=== PATIENT | female | born 1985 | race African-American/Black ===

== ENCOUNTER 2017-10-02 21:58 | Emergency (ER) | payer OTHER ==
[~2017-10-02] VITALS: Ht 175.3 cm; Wt 66.0 kg
[2017-10-02 22:54] VITALS: BP 120/79
== END 2017-10-02 22:54 | disposition home or self-care (01) ==
LOC: ER 21:58
DX: S41.111D Laceration without foreign body of right upper arm, subsequent encounter (principal); F17.200 Nicotine dependence, unspecified, uncomplicated; F12.10 Cannabis abuse, uncomplicated; X58.XXXD Exposure to other specified factors, subsequent encounter; Y93.89 Activity, other specified; Y99.8 Other external cause status; Y92.89 Other specified places as the place of occurrence of the external cause; Z88.0 Allergy status to penicillin
CPT/HCPCS: 99281; Z7610

== ENCOUNTER 2024-03-03 21:06 | Emergency (ER) | payer SELFPAY ==
[~2024-03-03] VITALS: Ht 175.3 cm; Wt 81.6 kg
[2024-03-03 21:16] VITALS: BP 110/77; RESP 16; TEMP 98.5; O2SAT 100
[2024-03-03 21:17] VITALS: PULSE 77
[2024-03-03] MEDS ORDERED: IBUPROFEN 600MG TABLET PO ONE (21:45)
[2024-03-03] MEDS ORDERED: IBUPROFEN 600MG TABLET PO NR (21:45)
[2024-03-03 21:51] LABS: BASOPHILS % 0.9 % (0.0-2.0); EOSINOPHILS % 2.1 % (0.0-5.0); HEMATOCRIT. 33.3 % (36.0-48.0); HEMOGLOBIN. 10.6 g/dL (12.0-16.0); LYMPHOCYTES % 22.8 % (20.0-50.0); MEAN CORPUSCULAR HEMOGLOBIN 26.1 pg (28.0-32.0); MEAN CORPUSCULAR VOLUME 81.6 fL (81.0-99.0); MEAN PLATELET VOLUME 8.9 fl (7.4-10.4); MONOCYTES % 6.8 % (2.0-8.0); NEUTROPHILS % 67.4 % (40.0-76.0); PLATELET 237 x1000/uL (130-400); RED BLOOD CELL COUNT 4.08 mill/uL (4.2-5.4); RED CELL DISTRIBUTION WIDTH 17.2 % (11.6-14.6); WHITE BLOOD COUNT 8.2 x1000/uL (4.5-11.0)
[2024-03-03 21:59] LABS: CHLORIDE 105 mEq/L (98-107); POTASSIUM 3.5 mEq/L (3.5-5.1); SODIUM 142 mEq/L (136-145)
[2024-03-03 22:00] LABS: CALCIUM 9.6 mg/dL (8.7-10.4); CARBON DIOXIDE 31 mEq/L (21-32)
[2024-03-03 22:05] LABS: CREATININE 0.7 mg/dL (0.6-1.0); GLUCOSE 102 mg/dL (70-105); UREA NITROGEN BLOOD 9 mg/dL (9-23)
[2024-03-03 22:07] LABS: ALANINE AMINOTRANSFERASE 11 IU/L (10-49); ALBUMIN 4.2 g/dL (3.2-4.8); ASPARTATE AMINOTRANSFERASE 23 IU/L (<34); BILIRUBIN DIRECT 0.2 mg/dL (<=3.0); BILIRUBIN TOTAL 0.5 mg/dL (0.1-1.0); PROTEIN TOTAL 7.5 g/dL (6.0-8.3); TROPONIN I HIGH SENSITIVITY < 4 ng/L (3.0-34)
[2024-03-04 00:11] LABS: TROPONIN I HIGH SENSITIVITY < 4 ng/L (3.0-34)
== END 2024-03-03 23:50 | disposition left against medical advice (07) ==
LOC: ER 21:06
DX: R07.9 Chest pain, unspecified (principal); F12.90 Cannabis use, unspecified, uncomplicated; F41.9 Anxiety disorder, unspecified
CPT/HCPCS: 36415; 71045; 80048; 80076; 83880; 84484; 85025; 93005; 99285

== ENCOUNTER 2024-03-11 13:23 | Emergency (ER) | payer SELFPAY ==
[~2024-03-11] VITALS: Ht 175.3 cm; Wt 81.0 kg
[2024-03-11 13:55] VITALS: TEMP 98.5; O2SAT 99
[2024-03-11 17:36] VITALS: BP 117/70; PULSE 67; RESP 15
== END 2024-03-11 17:45 | disposition home or self-care (01) ==
LOC: ER 13:23
DX: S68.117A Complete traumatic metacarpophalangeal amputation of left little finger, initial encounter (principal); F41.9 Anxiety disorder, unspecified; F12.10 Cannabis abuse, uncomplicated; X58.XXXA Exposure to other specified factors, initial encounter; Y93.89 Activity, other specified; Y92.89 Other specified places as the place of occurrence of the external cause; Y99.8 Other external cause status
CPT/HCPCS: 29130; 73130; 99283